=== PATIENT | female | born 1990 ===

== ENCOUNTER 2020-05-18 13:02 | Outpatient (CLI) | payer SELFPAY ==
[2020-05-18 14:32] LABS: Amorphous Crystals,Urine Few; Bilirubin,Urine NEG (Negative); Blood,Urine NEG (Negative); Calcium Oxalate Crystals,Urine 3+; Color,Urine Yellow (Yellow); Mucus,Urine FEW /HPF
[2020-05-18] MEDS ORDERED: LACTATED RINGERS 1,000 ML IV SCH (14:45)
[2020-05-18] MEDS ORDERED: METOCLOPRAMIDE 10 MG/2 ML INJ IV ONE (15:21)
[2020-05-18 15:31] VITALS: BP 113/73
[2020-05-18] MEDS ORDERED: BICITRA ORAL LIQD 30ML PO ONE (16:21)
== END 2020-05-18 16:05 | disposition home or self-care (01) ==
LOC: TRG 13:02 → APU 13:04 → TRG 16:05
PROVIDERS: ATTEND Obstetrics & Gynecology
DX: O26.893 Other specified pregnancy related conditions, third trimester (principal); R10.10 Upper abdominal pain, unspecified; O47.03 False labor before 37 completed weeks of gestation, third trimester; Z3A.34 34 weeks gestation of pregnancy
CPT/HCPCS: 59025; 81001; 96374; J2765

== ENCOUNTER 2020-07-07 22:18 | Outpatient (CLI) | payer SELFPAY ==
[2020-07-07 22:40] VITALS: BP 119/82
== END 2020-07-07 23:10 | disposition home or self-care (01) ==
LOC: EDBD → TRG 22:18 → APU 22:27 → TRG 23:10
DX: Z34.93 Encounter for supervision of normal pregnancy, unspecified, third trimester (principal); Z3A.39 39 weeks gestation of pregnancy
CPT/HCPCS: 59025

== ENCOUNTER 2020-07-08 23:48 | Outpatient (CLI) | payer SELFPAY ==
[2020-07-09 01:14] LABS: Bilirubin,Urine NEG (Negative); Blood,Urine NEG (Negative); Calcium Oxalate Crystals,Urine 1+; Color,Urine Amber (Yellow); Mucus,Urine FEW /HPF
[2020-07-09 01:29] VITALS: BP 126/73
== END 2020-07-09 02:10 | disposition home or self-care (01) ==
LOC: TRG 23:48 → APU 23:55 → TRG 07-09 02:10
PROVIDERS: ATTEND Obstetrics & Gynecology
DX: O62.9 Abnormality of forces of labor, unspecified (principal); Z3A.40 40 weeks gestation of pregnancy
CPT/HCPCS: 59025; 81001; Q0177

== ENCOUNTER 2020-09-08 07:21 | Emergency (ER) | payer SELFPAY ==
[2020-09-08 09:32] LABS: Bacteria,Urine 1+ /HPF (Negative); Bilirubin,Urine NEG (Negative); Blood,Urine NEG (Negative); Color,Urine Amber (Yellow); Mucus,Urine FEW /HPF
[2020-09-08 09:44] LABS: HCG Qualitative,Urine Negative (Negative)
[2020-09-08 10:13] LABS: Basophils % (Auto) 0.4 % (0.0-1.8); Eosinophils # (Auto) 0.2 K/mm3 (0.0-0.4); Eosinophils % (Auto) 1.5 % (0.0-4.3); Hematocrit 31.8 % (30.3-42.9); Hemoglobin 10.2 gm/dl (10.1-14.3); Lymphocytes # (Auto) 2.2 K/mm3 (1.2-5.4); Lymphocytes % (Auto) 20.7 % (13.4-35.0); Mean Corpuscular HGB Conc 32 % (30-34); Mean Corpuscular Volume 75 fl (79-97); Monocytes # (Auto) 0.4 K/mm3 (0.0-0.8); Monocytes % (Auto) 3.7 % (0.0-7.3); Platelet Count 467 K/mm3 (140-440); Red Blood Count 4.26 M/mm3 (3.65-5.03)
[2020-09-08 10:34] LABS: Alanine Aminotransferase 94 units/L (7-56); Albumin 4.4 g/dL (3.9-5); Blood Urea Nitrogen 10 mg/dL (7-17); Calcium 9.6 mg/dL (8.4-10.2); Hemolysis Index 2
[2020-09-08 10:36] LABS: BUN/Creatinine Ratio 14
[2020-09-08] MEDS ORDERED: SODIUM CHLORIDE 0.9% 1000 ML 1,000 ML IV ONE (10:47)
[2020-09-08] MEDS ORDERED: ONDANSETRON 4 MG/2 ML INJ IV ONE (10:47)
[2020-09-08] MEDS ORDERED: HYDROmorphone 1 MG/1 ML INJ IV ONE (10:47)
--- NOTE | 2020-09-08 11:58 | Cat Scan Report ---
CT ABDOMEN AND PELVIS WITH CONTRAST INDICATION / CLINICAL INFORMATION: abd pain OMNI 300 100ML. TECHNIQUE: Axial CT images were obtained through the abdomen and pelvis after 100 cc IV contrast. Sagittal and c oronal reformatted images. All CT scans at this location are performed using CT dose reduction for AL IFEANYI by means of automated exposure control. COMPARISON: None available. FINDINGS: LOWER CHEST: No significant abnormality. LIVER: No significant abnormality. GALLBLADDER: The gallbladder appears borderline to mildly dilated with mild wall thickening. No obvio us calcified gallstones are detected. BILE DUCTS: There is mild prominence of the intrahepatic biliary ducts near the liver hilum. The comm on bile duct is mildly dilated measuring 6.7 mm. No obvious choledocholithiasis on CT. PANCREAS: No significant abnormality. SPLEEN: No significant abnormality. ADRENALS: No significant abnormality. RIGHT KIDNEY and URETER: No significant abnormality. LEFT KIDNEY and URETER: No significant abnormality. STOMACH and SMALL BOWEL: No significant abnormality. COLON: No significant abnormality. APPENDIX: Not confidently identified, correlate with history. PERITONEUM: No free fluid. No free air. No fluid collection. LYMPH NODES: No significant adenopathy. AORTA and ARTERIES: No significant abnormality. IVC and VEINS: No significant abnormality. URINARY BLADDER: No significant abnormality. REPRODUCTIVE ORGANS: No significant abnormality. ADDITIONAL FINDINGS: A 4.5 x 1.8 x 1.9 cm simple appearing fluid collection is noted within an anteri or pelvic scar presumably related to previous . This appears to represent a small seroma. SKELETAL SYSTEM: No significant abnormality. IMPRESSION: Mild biliary dilatation is suspected as described above. No obvious cholelithiasis is detected on CT A. Consider further evaluation with ultrasound or MRCP. Anterior pelvic wall seroma as described. Signer Name: Berhane Larson Jr, MD Signed: 09/08/2020 11:54 AM Workstation Name: [id number]
--- NOTE | 2020-09-08 12:04 | Emergency Department Report ---
ED Abdominal Pain HPI - General Chief Complaint: Abdominal Pain Stated Complaint: STOMACH PAIN PUI?: No Time Seen by Provider: 09/08/20 10:45 Source: patient Mode of arrival: Ambulatory Limitations: No Limitations - History of Present Illness Initial Comments: Patient is a 30-year-old female that comes to the emergency room complaining of right upper quadrant pain that radiates through to her back. She has no epigastric tenderness and no Saucedo sign on exam. She has no fever. Patient denies prior history of gallstones or gallbladder disease. She endorses nausea and vomiting yesterday. Patient is 2 months . Patient denies fever or chills. She denies dysuria. She denies any vaginal discharge. She denies back pain. She denies any diarrhea or constipation. She denies any bloody emesis. Patient has not seen her doctor or any other provider prior to coming to the ER today. She has not taken anything for the pain. MD Complaint: abdominal pain -: Gradual, days(s) Location: RUQ, epigastric Radiation: back Severity: moderate Severity scale (0 -10): 10 Quality: aching Consistency: intermittent Improves With: nothing Worsens With: eating Associated Symptoms: nausea, vomiting - Related Data LMP (females 10-50): other (2 weeks ago) Previous Rx's Medication Instructions Recorded Last Taken Type Pantoprazole [Protonix] 40 mg PO QDAY #30 tablet 09/08/20 Unknown Rx Allergies Allergy/AdvReac Type Severity Reaction Status Date / Time No Known Allergies Allergy Verified 09/08/20 08:40 ED Review of Systems ROS: Stated complaint: STOMACH PAIN Other details as noted in HPI Comment: All other systems reviewed and negative ED Past Medical Hx - Past Medical History Previous Medical History?: No Hx Hypertension: No Hx Diabetes: No Hx Deep Vein Thrombosis: No Hx Renal Disease: No Hx Sickle Cell Disease: No Hx Seizures: No Hx Asthma: No Hx HIV: No - Surgical History Past Surgical History?: No - Family History Family history: no significant - Social History Smoking Status: Never Smoker Substance Use Type: None - Medications Home Medications: Home Medications Medication Instructions Recorded Confirmed Last Taken Type Pantoprazole [Protonix] 40 mg PO QDAY #30 tablet 09/08/20 Unknown Rx ED Physical Exam - General Limitations: No Limitations General appearance: alert, in no apparent distress - Head Head exam: Present: atraumatic, normocephalic - Eye Eye exam: Present: normal appearance - ENT ENT exam: Present: mucous membranes moist - Neck Neck exam: Present: normal inspection - Respiratory Respiratory exam: Present: normal lung sounds bilaterally. Absent: respiratory distress - Cardiovascular Cardiovascular Exam: Present: regular rate, normal rhythm. Absent: systolic murmur, diastolic murmur, rubs, gallop - GI/Abdominal GI/Abdominal exam: Present: soft, normal bowel sounds - Extremities Exam Extremities exam: Present: normal inspection - Back Exam Back exam: Present: normal inspection - Neurological Exam Neurological exam: Present: alert, oriented X3 - Psychiatric Psychiatric exam: Present: normal affect, normal mood - Skin Skin exam: Present: warm, dry, intact, normal color. Absent: rash ED Course Vital Signs 09/08/20 09/08/20 08:45 13:54 Temperature 98.6 F 97.8 F Pulse Rate 85 92 H Respiratory 18 18 Rate Blood Pressure 151/97 Blood Pressure 150/84 [Right] O2 Sat by Pulse 100 97 Oximetry ED Medical Decision Making - Lab Data Result diagrams: 09/08/20 10:00 09/08/20 10:00 - Radiology Data Radiology results: report reviewed, image reviewed SEE REPORT - Medical Decision Making Lab Results 09/08/20 09/08/20 09/08/20 Range/Units 10:00 10:00 Unknown WBC 10.6 (4.5-11.0) K/mm3 RBC 4.26 (3.65-5.03) M/mm3 Hgb 10.2 (10.1-14.3) gm/dl Hct 31.8 (30.3-42.9) % MCV 75 L (79-97) fl MCH 24 L (28-32) pg MCHC 32 (30-34) % RDW 17.0 H (13.2-15.2) % Plt Count 467 H (140-440) K/mm3 Lymph % (Auto) 20.7 (13.4-35.0) % [place] % (Auto) 3.7 (0.0-7.3) % Eos % (Auto) 1.5 (0.0-4.3) % Baso % (Auto) 0.4 (0.0-1.8) % Lymph # (Auto) 2.2 (1.2-5.4) K/mm3 [place] # (Auto) 0.4 (0.0-0.8) K/mm3 Eos # (Auto) 0.2 (0.0-0.4) K/mm3 Baso # (Auto) 0.0 (0.0-0.1) K/mm3 Seg Neutrophils % 73.7 H (40.0-70.0) % Seg Neutrophils # 7.8 H (1.8-7.7) K/mm3 Sodium 139 (137-145) mmol/L Potassium 3.8 (3.6-5.0) mmol/L Chloride 103.9 (98-107) mmol/L Carbon Dioxide 22 (22-30) mmol/L Anion Gap 17 mmol/L BUN 10 (7-17) mg/dL Creatinine 0.7 (0.6-1.2) mg/dL Estimated GFR > 60 ml/min BUN/Creatinine Ratio 14 % Glucose 145 H (65-100) mg/dL Calcium 9.6 (8.4-10.2) mg/dL Total Bilirubin 0.90 (0.1-1.2) mg/dL AST 415 H (5-40) units/L ALT 94 H (7-56) units/L Alkaline Phosphatase 129 (35-129) units/L Total Protein 7.6 (6.3-8.2) g/dL Albumin 4.4 (3.9-5) g/dL Albumin/Globulin Ratio 1.4 % Lipase 19 (13-60) units/L Urine Color Daisy (Yellow) Urine Turbidity Slightly-cloudy (Clear) Urine pH 5.0 (5.0-7.0) Ur Specific [place] 1.026 (1.003-1.030) Urine Protein 100 mg/dl (Negative) mg/dL Urine Glucose (UA) Neg (Negative) mg/dL Urine Ketones Neg (Negative) mg/dL Urine Blood Neg (Negative) Urine Nitrite Neg (Negative) Urine Bilirubin Neg (Negative) Urine Urobilinogen 4.0 (<2.0) mg/dL Ur Leukocyte Esterase Neg (Negative) Urine WBC (Auto) 2.0 (0.0-6.0) /HPF Urine RBC (Auto) 1.0 (0.0-6.0) /HPF U Epithel Cells (Auto) 17.0 H (0-13.0) /HPF Urine Bacteria (Auto) 1+ (Negative) /HPF Urine Mucus Few /HPF Urine HCG, Qual Negative (Negative) Vital Signs 09/08/20 08:45 Temperature 98.6 F Pulse Rate 85 Respiratory 18 Rate Blood Pressure 151/97 O2 Sat by Pulse 100 Oximetry Labs noted. UA noted. CT noted. Patient received normal saline x1 L, Dilaudid and Zofran. This has helped with her pain. I have also given her dose of Protonix. Patient has been in the ER for several hours and during this time has had no nausea and vomiting. Her pain seems to be well controlled. Given that the patient's pain is controlled and that she has no obstruction: Patient will be discharged home with outpatient follow-up and management. She is taking p.o., has normal vital signs, and is in no acute distress. I had a long discussion with the patient regarding her labs and findings. Although her lipase is negative she does have a mildly dilated common bile duct on CT. She understands that she will need to follow-up with GI for ongoing evaluation. Patient was discharged home with family. They verbalized understanding of her discharge plan of care. On discharge she is ambulatory and taking p.o. without difficulty. - Differential Diagnosis RO ALIREZA Critical care attestation.: If time is entered above; I have spent that time in minutes in the direct care of this critically ill patient, excluding procedure time. ED Disposition Clinical Impression: Abdominal pain Disposition: DC-01 TO HOME OR SELFCARE Is pt being admited?: No Does the pt Need Aspirin: No Condition: Stable Instructions: Abdominal Pain, Adult, [id number], Abdominal Pain (ED) Additional Instructions: BLAND DIET ADVANCE DIET TOLERATED AVOID FATTY FOODS STAY WELL HYDRATED WITH WATER TYLENOL FOR PAIN MED ORDERED TODAY FOLLOW UP WITH MD SABA 1. PCP 2. GI MD TO REASSESS YOUR COMMON BILE DUCT/G. BLADDER TELL THEM YOU WERE HERE AND THEY CAN SEE YOUR REPORTS THERE ARE REFERRALS BELOW TO THESE DOCTORS Prescriptions: Pantoprazole [Protonix] 40 mg PO QDAY #30 tablet Referrals: CHRISTOFER STEELE MD [Staff Physician] - 3-5 Days RAN TRENT MD [Staff Physician] - 3-5 Days Time of Disposition: 12:54
[2020-09-08] MEDS ORDERED: PANTOPRAZOLE 40 MG TAB PO ONE (12:54)
[2020-09-08 13:55] VITALS: BP 150/84
== END 2020-09-08 13:55 | disposition home or self-care (01) ==
LOC: ED 07:21
DX: R10.11 Right upper quadrant pain (principal); R11.2 Nausea with vomiting, unspecified
CPT/HCPCS: 36415; 74177; 80053; 81001; 81025; 83690; 85025; 96361; 96374; 96375; 99284; J1170; J2405; J7030; Q9967